=== PATIENT | female | born 1950 | race African-American/Black ===

== ENCOUNTER → 2019-03-24 | Outpatient (CLI) | payer MEDICARE, OTHER ==
[~2019-03-24] MED LIST: FUROSEMIDE40 MG PO; GLIMEPIRIDE2 MG PO; LINZESS145 MCG PO; OMEPRAZOLE40 MG PO; POTASSIUM600 MG PO; SIMVASTATIN80 MG PO; VASOTEC10 MG PO; ZOLPIDEM TARTRA10 MG PO
[2019-03-24 17:03] LABS: BASOPHILS % 0.3 % (0.0-1.0); HEMATOCRIT 36.6 % (34.2-44.1); HEMOGLOBIN 11.6 g/dL (12.0-16.0); LYMPHOCYTES # (AUTO) 1.6 (1.0-3.2); MEAN CORPUSCULAR HEMOGLOBIN 30.4 pg (28-32); MEAN CORPUSCULAR HGB CONC 31.7 g/dL (31-35); MEAN CORPUSCULAR VOLUME 95.8 fL (81-99); MONOCYTES # (AUTO) 0.3 (0.2-0.8); MONOCYTES % 6.5 % (4.4-11.3); NEUTROPHILS % 51.2 % (38.7-80.0); PLATELET COUNT 164 x10e3/uL (140-360); RED BLOOD COUNT 3.82 x10e6/uL (3.6-5.1); RED CELL DISTRIBUTION WIDTH 12.1 % (11.7-14.4)
== END ==
LOC: DX 11:22 → EDSTATUS 03-30 10:00
PROVIDERS: ATTEND Internal Medicine Gastroenterology
DX: Z01.818 Encounter for other preprocedural examination (principal); Z12.11 Encounter for screening for malignant neoplasm of colon; Z71.3 Dietary counseling and surveillance
CPT/HCPCS: 36415; 85025; 93005